=== PATIENT | female | born 1970 | race Caucasian/White ===

== ENCOUNTER 2017-05-18 12:36 | Day surgery (SDC) | payer BC ==
[~2017-05-18] VITALS: Ht 162.6 cm; Wt 76.2 kg
[~2017-05-18 12:36] MED LIST: ESTRACE1 MG PO; FEOSOL325 MG PO; FLEXERIL10 MG PO; GAS-X ULTRA ST180 MG PO; GLUCOPHAGE500 MG PO; NEURONTIN800 MG PO; PERCOCET 5/31 TABLET PO; PROVERA CYCRIN PO; SYNTHROID50 MCG PO; VITAMIN D-32000 UNI2 PO; WELLBUTRIN SR150 MG PO; ZANTAC150 MG PO; ZUPLENZ4 MG PO
[2017-05-18 13:20] LABS: POINT-OF-CARE METER ID UU14174212
== END 2017-05-18 14:25 | disposition home or self-care (01) ==
LOC: PAIN 12:36 → SDC 13:00 → PAIN 14:25
PROVIDERS: Anesthesiology Pain Medicine
PROC: BR141ZZ Fluoroscopy of Cervical Facet Joint(s) using Low Osmolar Contrast (ICD-10-PCS; principal; 2017-05-18)
PROC: 3E0T33Z Introduction of Anti-inflammatory into Peripheral Nerves and Plexi, Percutaneous Approach (ICD-10-PCS; principal; 2017-05-18)
PROC: 3E0T3BZ Introduction of Anesthetic Agent into Peripheral Nerves and Plexi, Percutaneous Approach (ICD-10-PCS; principal; 2017-05-18)
DX: M47.812 Spondylosis without myelopathy or radiculopathy, cervical region (principal); M54.2 Cervicalgia; G89.29 Other chronic pain; M50.322 Other cervical disc degeneration at C5-C6 level; M43.22 Fusion of spine, cervical region; E03.9 Hypothyroidism, unspecified; M51.26 Other intervertebral disc displacement, lumbar region; K21.9 Gastro-esophageal reflux disease without esophagitis; E11.9 Type 2 diabetes mellitus without complications; F41.1 Generalized anxiety disorder; E53.8 Deficiency of other specified B group vitamins; E55.9 Vitamin D deficiency, unspecified; Z87.891 Personal history of nicotine dependence; Z79.84 Long term (current) use of oral hypoglycemic drugs; Z79.891 Long term (current) use of opiate analgesic
CPT/HCPCS: 82948; J1030; J2250; J3010; S0020

== ENCOUNTER 2017-05-25 09:16 | Day surgery (SDC) | payer BC ==
[~2017-05-25] VITALS: Ht 162.6 cm; Wt 76.2 kg
[2017-05-25 10:16] LABS: POINT-OF-CARE METER ID UU14174212
== END 2017-05-25 11:09 | disposition home or self-care (01) ==
LOC: PAIN 09:16 → SDC 10:00 → PAIN 11:09
PROVIDERS: Anesthesiology Pain Medicine
DX: M47.812 Spondylosis without myelopathy or radiculopathy, cervical region (principal); M54.2 Cervicalgia; G89.29 Other chronic pain; M54.5 Low back pain; E03.9 Hypothyroidism, unspecified; M51.26 Other intervertebral disc displacement, lumbar region; K21.9 Gastro-esophageal reflux disease without esophagitis; E11.9 Type 2 diabetes mellitus without complications; F41.1 Generalized anxiety disorder; Z87.891 Personal history of nicotine dependence; Z79.84 Long term (current) use of oral hypoglycemic drugs; Z79.891 Long term (current) use of opiate analgesic
CPT/HCPCS: 82948; J1030; J2250; J3010; S0020

== ENCOUNTER 2018-02-15 08:18 | Day surgery (SDC) | payer BC ==
[~2018-02-15] VITALS: Ht 162.6 cm; Wt 77.1 kg
[~2018-02-15 08:18] MED LIST changes: +CLARITIN,ALAVAR10 MG PO; +GLUCOPHAGE1000 MG PO; -GLUCOPHAGE500 MG PO; +ZOFRAN ODT4 MG PO; -ZUPLENZ4 MG PO
== END 2018-02-15 10:00 | disposition home or self-care (01) ==
LOC: PAIN 08:18 → SDC 09:00 → PAIN 09:00
PROVIDERS: Anesthesiology Pain Medicine
DX: M47.812 Spondylosis without myelopathy or radiculopathy, cervical region (principal); M50.20 Other cervical disc displacement, unspecified cervical region; M54.12 Radiculopathy, cervical region; Z87.891 Personal history of nicotine dependence; Z91.041 Radiographic dye allergy status
CPT/HCPCS: 82948; J1100; J2250; J3010